=== PATIENT | female | born 1965 ===

== ENCOUNTER 2020-12-19 17:01 | Emergency (ER) | payer OTHER ==
[~2020-12-19] VITALS: Ht 157.5 cm; Wt 53.8 kg
[2020-12-19] MEDS ORDERED: LORazepam 1MG TABLET PO ONE (17:30)
--- NOTE | 2020-12-19 19:28 | NUR ---
communicable disease specialist note: Pt to room from lobby.
--- NOTE | 2020-12-19 20:00 | NUR ---
poc clarified with provider- not top place legal [address] at this time. however to have psychiatry assess
[2020-12-19] MEDS ORDERED: LORazepam 1MG TABLET ONE (20:05)
--- NOTE | 2020-12-19 20:09 | NUR ---
cc ua obtained-sent to lab lab at bedside medicated per emar (walked here)
[2020-12-19 20:30] LABS: ANION GAP 5 mmol/L (5-15); CALCIUM 9.4 mg/dL (8.5-10.1); CHLORIDE 112 mmol/L (98-107)
[2020-12-19 20:31] LABS: ALANINE AMINOTRANSFERASE 17 U/L (12-78); ALBUMIN 3.4 g/dL (3.4-5.0); SALICYLATE LEVEL 10.1 mg/dL (2.8-20.0)
[2020-12-19 20:33] LABS: ALKALINE PHOSPHATASE 128 U/L (45-117); BILIRUBIN,TOTAL 0.4 mg/dL (0.2-1.0); TOTAL PROTEIN 7.7 g/dL (6.4-8.2)
[2020-12-19 20:43] LABS: BASOPHILS % (AUTO) 1 % (0-1); EOSINOPHILS % (AUTO) 1 % (1-7); LYMPHOCYTES % (AUTO) 15 % (22-44); MEAN CORPUSCULAR HEMOGLOBIN 30.2 pg (27.0-34.8); MEAN CORPUSCULAR HGB CONC 33.8 g/dL (32.4-35.8); MEAN PLATELET VOLUME 8.1 fL (7.4-10.4); MONOCYTES % (AUTO) 7 % (2-9); NEUTROPHILS % (AUTO) 76 % (42-75); PLATELET COUNT 357 x10^3/uL (130-400); RED BLOOD COUNT 4.14 x10^6/uL (3.82-5.3)
[2020-12-19 20:43] LABS: AMPHETAMINE SCREEN, URINE Negative (Negative); BARBITURATE SCREEN, URINE Negative (Negative); BENZODIAZEPINE SCREEN, URINE Negative (Negative); CANNABINOID SCREEN, URINE Positive (Negative); COCAINE SCREEN, URINE Negative (Negative); METHADONE SCREEN, URINE Negative (Negative); OPIATE SCREEN, URINE Negative (Negative)
[2020-12-19 20:45] LABS: MICROSCOPIC INDICATED
--- NOTE | 2020-12-19 23:04 | NUR ---
RECEIVED REPORT FROM DEB VILLAGRAN
--- NOTE | 2020-12-19 23:12 | NUR ---
patient woken to eat snacks/hydrate patient moved to room 3 for continued psychiatric monitoring report to alicia thurman
--- NOTE | 2020-12-19 23:51 | NUR ---
Patient is sleeping comfortably in bed. eyes closed. breathing even and unlabored. Bed in lowest, rails engaged, call light on lap. Vital Signs within normal limits. WCTM.
--- NOTE | 2020-12-20 00:50 | NUR ---
pt speaking to [facility] er psychiatrist currently
[2020-12-20 02:41] VITALS: BP 119/74
--- NOTE | 2020-12-20 02:42 | NUR ---
break rn: Patient given discharge instructions and they have confirmed that they understand the instructions. Patient ambulatory with steady gait. NAD, all questions answered appropriately, denies additional needs at this time. No personal belongings left in room after discharge.
== END 2020-12-20 02:43 | disposition home or self-care (01) ==
LOC: ED 23:59
DX: F41.1 Generalized anxiety disorder (principal); F32.0 Major depressive disorder, single episode, mild; F12.10 Cannabis abuse, uncomplicated; Z72.9 Problem related to lifestyle, unspecified
CPT/HCPCS: 36415; 80053; 80299; 80307; 80320; 80329; 81001; 85025; 99283; G0480